=== PATIENT | male | born 1965 | race Caucasian/White ===

== ENCOUNTER 2020-06-03 09:01 | Emergency (ER) | payer OTHER ==
[2020-06-03] MEDS ORDERED: CYCLOBENZAPRINE10 MG PO (09:42)
[2020-06-03] MEDS ORDERED: DICLOFENAC SODI75 MG PO (09:42)
== END 2020-06-03 10:13 | disposition home or self-care (01) ==
LOC: FER 09:01
DX: M54.6 Pain in thoracic spine (principal); M54.5 Low back pain; G89.29 Other chronic pain; F17.210 Nicotine dependence, cigarettes, uncomplicated
CPT/HCPCS: 96372; 99283; J1040; J1885